=== PATIENT | female | born 1975 | race Caucasian/White ===

== ENCOUNTER 2019-06-11 16:25 | Emergency (ER) | payer OTHER ==
[~2019-06-11] VITALS: Ht 167.6 cm; Wt 58.2 kg
[2019-06-11 16:27] VITALS: BP 116/76; TEMP 97.3
[2019-06-11 17:08] VITALS: PULSE 72
[2019-06-11 17:27] LABS: HIV 1/2 Antibodies Non-Reactive; HIV-1p24 Antigen Non-Reactive
[2019-06-12 20:08] LABS: HEPATITIS B SURFACE ANTIGEN Negative (Negative); HEPATITIS C VIRUS ANTIBODY Negative (Negative)
== END 2019-06-11 17:08 | disposition home or self-care (01) ==
LOC: COL.ER 16:25
PROVIDERS: Physician Assistant
DX: S60.451A Superficial foreign body of left index finger, initial encounter (principal); W45.8XXA Other foreign body or object entering through skin, initial encounter; Y99.0 Civilian activity done for income or pay

== ENCOUNTER → 2021-08-11 | Outpatient (CLI) | payer OTHER | LOC: MC.RAD 07:59 | DX: Z12.31 Encounter for screening mammogram for malignant neoplasm of breast (principal) ==